=== PATIENT | female | born 1995 | race Caucasian/White ===

== ENCOUNTER 2016-06-26 06:30 | Emergency (ER) | payer BC ==
[~2016-06-26] VITALS: Ht 162.6 cm; Wt 73.3 kg
[~2016-06-26 06:30] MED LIST: BCPILLS PO
[2016-06-26 06:39] VITALS: BP 121/73; PULSE 88; TEMP 36.6; O2SAT 97; Ht 162.6 cm; Wt 73.3 kg
[2016-06-26] MEDS ORDERED: DOXYCYCLINE HYCLATE 100 MG CAP PO STA (07:00)
--- NOTE | 2016-06-26 07:08 | EMERGENCY ROOM VISIT NOTE ---
History Report prepared by Callieibkirill: Zoraida Hernandez Under the Supervision of: Dr. Andrey Noel M.D. First contact with patient: 06:54 Chief Complaint: BITE Stated Complaint: NEED A TICK REMOVED History of Present Illness The patient is a 20 year old female who presents to the Emergency Room for tick removal. The patient states that she went hiking at home in the [facility] 3 days ago. She does have a dog. Recently, she noticed a tick on the right side of her torso. She was unable to reach the tick to try to remove it from her skin. She denies any symptoms concerning for Lyme disease at this point. Source of History: patient Onset: 3 days ago Position: other (right torso) Quality: other (tick) Timing: constant Review of Systems See HPI for pertinent positives & negatives. A total of 10 systems reviewed and were otherwise negative. Past Medical & Surgical Medical Problems: (1) Nausea, vomiting, and diarrhea Family History No pertinent family history stated. Social History Smoking Status: Never Smoker Occupation Status: [employer] student Current/Historical Medications Scheduled Cetirizine (Zyrtec), 10 MG PO DAILY Allergies Uncoded Allergies: PEANUTS (Allergy, Unknown, throat swells, 07/02/13) TREE NUTS (Allergy, Unknown, throat swells, 06/26/16) Physical Exam Vital Signs Date Time Temp Pulse Resp B/P Pulse Ox O2 Delivery O2 Flow Rate FiO2 06/26/16 06:39 36.6 88 20 121/73 97 Room Air Physical Exam GENERAL: Patient is a healthy-appearing well-nourished 20 year old female. HEAD: Normocephalic atraumatic EYES: Ocular movements intact pupils equal and react to light OROPHARYNX mucous membranes are moist no exudates present no erythema or edema present NECK: Supple no nuchal rigidity CHEST: Good equal expansion LUNGS: Clear and equal to auscultation CARDIAC: Normal S1 and S2 ABDOMEN: Soft nontender no guarding BACK: No CVA tenderness EXTREMITIES: No pain upon palpation normal muscle strength in all groups no clubbing cyanosis or edema NEURO: Patient is following commands is answering questions appropriately. Alert and oriented x3 Cranial Nerves 2-12 grossly intact SKIN: Tick present on the right flank area. All parts were removed on exam. Tick was still alive and was sent for identification. Medical Decision & Procedures Laboratory Results Test 06/26/16 07:01 Medications Administered Medications (Trade) Dose Ordered Sig/Miguel Route Start Time Stop Time Status Last Admin Dose Admin Doxycycline Hyclate (Vibramycin Cap) 100 mg ONE STAT PO 06/26/16 07:00 06/26/16 07:01 DC 06/26/16 07:14 100 MG ED Course 0655: The patient was evaluated in room A10. A complete history and physical examination was performed. I discussed results and treatment plan with the patient. She verbalizes agreement and understanding. The patient is ready for discharge. 0700: Ordered Doxycycline Hyclate 100 mg PO. Medical Decision This is a 20-year-old female who presents emergency department complaining of tick. This was removed with the tick twister. The tick was sent outside lab for identification. The patient will be given a one-time dose of doxycycline here in emergency department. Patient was told to follow-up with her primary care physician. Patient was in agreement with the treatment plan. Impression Primary Impression: Tick bite Scribe Attestation The scribe's documentation has been prepared under my direction and personally reviewed by me in its entirety. I confirm that the note above accurately reflects all work, treatment, procedures, and medical decision making performed by me. Departure Information Dispostion Home / Self-Care Referrals No Doctor, Assigned (PCP) Patient Instructions Bites Tick, Disease Lyme Prevent, ED Bite Tick Abx Tx, ED Facts Tick, My [facility] Additional Instructions Tick ID takes approx 1 week You have been examined and treated today on an emergency basis only. This is not a substitute for, or an effort to provide, complete comprehensive medical care. It is impossible to recognize and treat all injuries or illnesses in a single emergency department visit. It is therefore important that you follow up closely with [facility]. Call as soon as possible for an appointment. Thank you for your time and consideration. I look forward to speaking with you again soon. Please don't hesitate to call us if you have any questions. Problem Qualifiers Primary Impression: Tick bite Encounter type: initial encounter Qualified Codes: W57.XXXA - Bitten or stung by nonvenomous insect and other nonvenomous arthropods, initial encounter
[2016-06-26] MEDS ORDERED: CETI10TA84 PO (07:15)
--- NOTE | 2016-07-02 12:32 | Pharmacy Progress Note ---
ED Pharmacist Culture FollowUp Date of Service: Jul 02, 2016. Patient called requesting results of tick ID. Per Dr. Noel, wood/dog ticks do not carry Lyme. Notified of result. Patient acknowledged understanding.
== END 2016-06-26 07:12 | disposition home or self-care (01) ==
LOC: C.EDB 06:31 → C.EDA 07:12
DX: S30.861A Insect bite (nonvenomous) of abdominal wall, initial encounter (principal); W57.XXXA Bitten or stung by nonvenomous insect and other nonvenomous arthropods, initial encounter; Z91.010 Allergy to peanuts